=== PATIENT | male | born 1970 | race Two or more races ===

== ENCOUNTER 2025-01-18 17:02 | Emergency (ER) | payer OTHER ==
[~2025-01-18] VITALS: Ht 175.3 cm; Wt 88.9 kg
[2025-01-18 17:39] LABS: HEMATOCRIT 42.8 % (39.0-48.0); HEMOGLOBIN 15.1 g/dL (13-16.00); MEAN CELL VOLUME 87.5 fL (80.0-100.00); MEAN CORPUSCULAR HEMOGLOBIN 30.8 pg (27.00-32.0); MEAN CORPUSCULAR HGB CONC 35.3 g/dl (32.0-36.0); PLATELET COUNT 156 K/uL (150-450); RED BLOOD COUNT 4.89 M/uL (4.00-6.00); RED CELL DISTRIBUTION WIDTH 13.5 % (11.5-14.5)
[2025-01-18 19:45] LABS: CALCIUM 9.7 mg/dL (8.5-10.1); CREATININE SERUM 1.38 mg/dL (0.70-1.30); GFR 53.69; POTASSIUM 4.64 mEq/L (3.5-5.1)
== END 2025-01-18 20:29 | disposition home or self-care (01) ==
LOC: ER 17:03
PROVIDERS: General Practice
DX: R53.81 Other malaise (principal); R06.02 Shortness of breath; Z20.822 Contact with and (suspected) exposure to COVID-19